=== PATIENT | female | born 1960 | race Caucasian/White ===

== ENCOUNTER 2019-06-09 07:28 | Day surgery (SDC) | payer BC ==
[2019-06-09] MEDS ORDERED: PROPOFOL 60 ML (09:36)
[2019-06-09] MEDS ORDERED: LIDOCAINE 2% (SDV) 5 ML INJ (09:37)
[2019-06-09] MEDS ORDERED: FENTAnyl 50 MCG/ML VIAL IV (11:30)
[2019-06-09] MEDS ORDERED: ONDANSETRON 4 MG INJ IV (11:30)
== END 2019-06-09 13:34 | disposition home or self-care (01) ==
LOC: GIL 07:28
DX: K64.8 Other hemorrhoids (principal); D12.5 Benign neoplasm of sigmoid colon; K57.30 Diverticulosis of large intestine without perforation or abscess without bleeding; K21.9 Gastro-esophageal reflux disease without esophagitis; I10 Essential (primary) hypertension
CPT/HCPCS: 43239; 88305; 88312